=== PATIENT | female | born 1930 | race Caucasian/White ===

== ENCOUNTER 2017-06-17 10:54 | Emergency (ER) | payer OTHER, BC ==
[~2017-06-17] VITALS: Ht 162.6 cm; Wt 44.4 kg
[~2017-06-17 10:54] MED LIST: ATENOLOL-CHLOR1 EAC1 PO; BUSPIRONE HCL10 MG PO; CEPHALEXIN500 MG PO; CITALOPRAM HBR10 MG PO; COZAAR50 MG PO; EVISTA60 MG PO; EXELON PATCH4.6 MG TD; EXELON PATCH9.5 MG TD; EXELON3 MG PO; FLUORIDE0.5 MG PO; HYGROTON25 MG PO; KEFLEX500 MG PO; LOPRESSOR100 M1 PO; LORAZEPAM1 MG PO; LOSARTAN POTASS50 MG PO; METOPROLOL TAR100 MG PO; NAMENDA10 MG PO; PRESERVISION T1 EACH PO; RESTASIS 01 DROP/0.4 BOTH EYES; RISPERIDONE0.5 MG PO; RIVASTIGMINE3 MG PO; SEROQUEL12.5 MG PO; SERTRALINE HCL50 MG PO; THERA1 EAC1 PO; THERAGRAN1 TABLET PO; ZOLOFT50 MG PO; ZYPREXA2.5 MG PO; ZYPREXA5 MG PO
[2017-06-17 11:15] LABS: ADD MIUA? YES; BILIRUBIN NEGATIVE; BLOOD NEGATIVE; COLOR YELLOW ((YELLOW)); GLUCOSE (STRIP) NEGATIVE; KETONES 5; LEUKOCYTES NEGATIVE; NITRITE NEGATIVE; PROTEIN (STRIP) NEGATIVE; SPECIFIC GRAVITY 1.019 (1.000-1.030); UROBILINOGEN 0.2 MG/DL (0.2-1.0)
[2017-06-17 11:28] LABS: BACTERIA RARE /HPF; CALCIUM OXALATE CRYSTALS 2+ /HPF; EPITHELIAL CELLS 1+ /HPF; MUCUS 4+ /LPF; UCUL ADDED? YES
[2017-06-17 12:47] LABS: HEMATOCRIT 39.7 % (36.0-46.0); MCH 29.3 PG (29.0-34.0); MCHC 32.5 G/DL (30.0-36.0); MCV 90.2 FL (83-99); MEAN PLAT.VOLUME 10.9 uM^3 (9.5-12.4); PLATELET COUNT 168 K/uL (156-360); RBC DIS.WIDTH-CV 13.3 % (11.8-14.6); RBC DIS.WIDTH-SD 44.4 % (39-53); WHITE BLOOD COUNT 6.1 K/uL (4.1-10.2)
[2017-06-17 12:56] LABS: CHLORIDE 107 mEq/L (99-109); POTASSIUM 3.8 mEq/L (3.7-5.4); SODIUM 142 mEq/L (136-147)
[2017-06-17 12:58] LABS: GLUCOSE 93 mg/dL (70-99)
[2017-06-17 12:59] LABS: ANION GAP 10 MEQ/L (2-14)
[2017-06-17 13:02] LABS: GFR ESTIMATE (CALCULATED) 56 mL/min/
[2017-06-17 13:03] LABS: UREA NITROGEN (BUN) 22 mg/dL (9-23)
[2017-06-17 17:06] VITALS: BP 179/95
== END 2017-06-17 17:07 | disposition home or self-care (01) ==
LOC: EME 10:54
PROVIDERS: Emergency Medicine
DX: G30.9 Alzheimer's disease, unspecified (principal); F02.80 Dementia in other diseases classified elsewhere, unspecified severity, without behavioral disturbance, psychotic disturbance, mood disturbance, and anxiety; Z87.440 Personal history of urinary (tract) infections; I10 Essential (primary) hypertension
CPT/HCPCS: 70450; 80048; 81003; 85027; 87086; 99281; 99285